=== PATIENT | female | born 1980 | race African-American/Black ===

== ENCOUNTER 2016-07-05 08:48 | Emergency (ER) | payer OTHER ==
[2016-07-05 09:10] VITALS: TEMP 98; BMI 35.4
[2016-07-05] MEDS ORDERED: SODIUM CHLORIDE 1,000 ML IV ONE (09:41)
[2016-07-05] MEDS ORDERED: KETOROLAC TROMETHAMINE 30 MG/1 ML VIAL IVPUSH ONE (09:41)
--- NOTE | 2016-07-05 09:47 | PDOC ---
History of Present Illness - General History Source: Patient Exam Limitations: No Limitations - History of Present Illness Initial Comments: 07/05/16 09:53 The patient is a 35-year-old woman with a significant past medical history of hypertension who presents to the emergency department via walk-in for further evaluation of a headache. No fall/trauma/strenuous activity. She states she was in her usual state of health when she woke up this morning, at approximately 06: 00 AM with palpitations and an associated left temporal headache and neck stiffness that subsided up until ER arrival. She reports experiencing similar symptoms in the past which she attributed to her history of hypertension. She reports compliance with her hypertensive medications last night and this morning. Patient stated that her palpitations and headache have now resolved and only expresses concern for her neck pain/stiffness. Patient states that her neck pain is exacerbated with turning her head, particularly to her left. She also reports mild left ear pain. pt endorses URI symptoms over the past 1-2 weeks which has since resolved. No recent fevers, chills, generalized weakness. No chest pain, lightheadedness, dizziness, visual changes, cough, shortness of breath No abdominal pain, nausea, vomiting, diarrhea. No associated numbness/tingling/weakness in the face, upper or lower extremities Allergies: No Known Drug Allergies Past Surgical History: None reported. Social History: No tobacco, ETOH and recreational drug use. Primary Care Physician: Dr. Harpreet Arroyo / <Mine Moore - Last Filed: 07/05/16 10:26> <Jaguar Garcia - Last Filed: 07/05/16 11:57> - General Chief Complaint: Palpitations Stated Complaint: HEADACHE, PALPITATIONS Time Seen by Provider: 07/05/16 09:20 Past History <Mine Moore - Last Filed: 07/05/16 10:26> - Past Medical History HTN: Yes - Psycho/Social/Smoking Cessation Hx Suicidal Ideation: No Smoking History: Never smoked Hx Alcohol Use: No Drug/Substance Use Hx: No <Jaguar Garcia - Last Filed: 07/05/16 11:57> - Past Medical History Allergies/Adverse Reactions: Allergies Allergy/AdvReac Type Severity Reaction Status Date / Time No Known Allergies Allergy Verified 07/05/16 09:05 Home Medications: Ambulatory Orders NK [No Known Home Medication] 07/05/16 Review of Systems - Review of Systems Able to Perform ROS?: Yes Comments:: 07/05/16 09:53 CONSTITUTIONAL: No reported: Fever, Chills, Diaphoresis, Generalized Weakness, Malaise, Loss of Appetite HEENT: Reported: Left Ear Pain. No reported: Rhinorrhea, Nasal Congestion Throat Pain, Throat Swelling, Difficulty Swallowing, Mouth Swelling, Eye Pain, Visual Changes CARDIOVASCULAR: Reported: Palpitations. (Now Resolved). No reported: Chest Pain, Syncope, Irregular Heart Rate, Lightheadedness, Peripheral Edema RESPIRATORY: No Reported: Cough, Shortness of Breath, SOB with Exertion, Orthopnea, Wheezing , Stridor, Hemoptysis GASTROINTESTINAL: No reported: Abdominal pain, Abdominal Distension, Nausea, Vomiting, Diarrhea, Constipation, Melena, Hematochezia GENITOURINARY: No reported: Dysuria, Frequency, Urgency, Hesitancy, Flank Pain, Genital Pain MUSCULOSKELETAL: Reported: Neck Pain. Neck Stiffness. No reported: Myalgia, Arthralgia, Joint Swelling, Back pain SKIN: No reported: Rash, Itching, Pallor HEMEATOLOGIC/IMMUNOLOGIC: No reported: Easy Bleeding, Easy Bruising, Lymphadenopathy, Frequent infections ENDOCRINE: No reported: Unexplained Weight Gain, Unexplained Weight Loss, Heat Intolerance , Cold Intolerance NEUROLOGIC: Reported: Headache (Now Resolved) No reported: Focal Weakness, Paresthesias, Vertigo, Lightheadedness, Unsteady Gait, Seizure, Mental Status Changes, Incontinence PSYCHIATRIC: No reported: Anxiety, Depression <Mine Moore - Last Filed: 07/05/16 10:26> *Physical Exam - Vital Signs Last Vital Signs Temp Pulse Resp BP Pulse Ox 98.0 F 106 H 20 153/89 100 07/05/16 09:05 07/05/16 09:05 07/05/16 09:05 07/05/16 09:05 07/05/16 09:05 - Physical Exam Comments: 07/05/16 09:53 GENERAL: The patient is awake, alert, and fully oriented, Nontoxic - in no acute distress. HEAD: Normocephalic, atraumatic. EYES: extraocular movements intact, sclera anicteric, conjunctiva clear. ENT: Bilateral TMs are clear without erythema, bulging, light reflexes intact and symmetric bilaterally, No tonsillar exudates or erythema. Normal voice. Moist mucous membranes. NECK: Normal range of motion, supple. Mild tenderness to palpation on the left neck strap muscles. LUNGS: Breath sounds equal, clear to auscultation bilaterally. No wheezes, no rhonchi, no rales. HEART: Regular rate and rhythm, without murmur, rub or gallop. ABDOMEN: Soft, nontender, normoactive bowel sounds. No guarding, no rebound.No CVA tenderness EXTREMITIES: Normal range of motion, no edema. No clubbing or cyanosis. No cords , erythema, or tenderness. NEUROLOGICAL: No facial asymmetry, Normal speech, PSYCH: Normal mood, normal affect. SKIN: Warm, Dry, normal turgor. <Mine Moore - Last Filed: 07/05/16 10:26> - Vital Signs Last Vital Signs Temp Pulse Resp BP Pulse Ox 98.0 F 106 H 20 153/89 100 07/05/16 09:05 07/05/16 09:05 07/05/16 09:05 07/05/16 09:05 07/05/16 09:05 <Jaguar Garcia - Last Filed: 07/05/16 11:57> Heart Score/ECG Review - ECG Impressions Comment:: 07/05/16 11:22 Twelve-lead EKG was performed and reviewed by me. There is normal sinus rhythm with a rate of 107 The axis is normal. The intervals are normal. There is normal R wave progression There are no ST or T wave abnormalities. Impression: Sinus tachycardia <Jaguar Garcia - Last Filed: 07/05/16 11:57> ED Treatment Course - LABORATORY CBC & Chemistry Diagram: 07/05/16 09:53 07/05/16 09:53 <Mine Moore - Last Filed: 07/05/16 10:26> - LABORATORY CBC & Chemistry Diagram: 07/05/16 09:53 07/05/16 09:53 <Jaguar Garcia - Last Filed: 07/05/16 11:57> Medical Decision Making - Medical Decision Making 07/05/16 09:45 35y F hx of htn, presenting with complaing of episode of palpitations, headache , neck pain this morning, with resolution of palpitations and headache but still mild L neck pain - pt with reproducible tendeness in the L neck strap muscles/trapezius - suspect strain. will ck labs to r/o anemia, metabolic dernagement. will give toradol for her discomfort. pt also slightly tachycardic - suspect due to dehdyration as pt has not yet had anything to eat/drink this morning. will ck ekg to screen for arrythmia will r/o A portion of this note was documented by scribe services under my direction. I have reviewed the details of the note, within reason, and agree with the documentation with the following case summary and management plan written by me 07/05/16 11:22 The patient's blood work was reviewed it is unremarkable pt is feeling improved with complete resolution of her pain will d/c the pt homew ith pmd fu return precautions were discussed will recheck her vitals to ensure her tachycardia from arrival had resolved prior to discharge I discussed the physical exam findings, ancillary test results and final diagnoses with the patient. I answered all of the patient's questions. The patient was satisfied with the care received and felt comfortable with the discharge plan and treatment plan. The patient will call their primary care physician within 24 hours to arrange follow-up and will return to the Emergency Department with any new, persistent or worsening symptoms. <Jaguar Garcia - Last Filed: 07/05/16 11:57> *DC/Admit/Observation/Transfer - Attestations Scribe Attestion: 07/05/16 09:53 Documentation prepared by Mine Moore, acting as medical liaison for Jaguar Garcia MD. <Mine Moore - Last Filed: 07/05/16 10:26> - Discharge Dispostion Admit: No <Jaguar Garcia - Last Filed: 07/05/16 11:57> Diagnosis at time of Disposition: Palpitations, Neck pain - Discharge Dispostion Disposition: HOME Condition at time of disposition: Improved - Referrals Referrals: Harpreet Arroyo MD [Primary Care Provider] - - Patient Instructions Printed Discharge Instructions: DI for Neck Pain, DI for Palpitations Additional Instructions: Return to the emergency department immediately with ANY new, persistent or worsening symptoms including any numbness, tingling, vision changes, fevers, chills or other concerns. Take ibuprofen or Tylenol for your neck pain. You MUST call and follow up with your doctor tomorrow for further evaluation of your symptoms. Results were discussed with you. Please make sure your doctor reviews the results of your emergency evaluation. Print Language: DIVEHI - Post Discharge Activity Work/School Note: Back to Work
[2016-07-05] MEDS ORDERED: KETOROLAC TROMETHAMINE 30 MG/1 ML VIAL ONE (09:50)
[2016-07-05 10:00] LABS: BASOPHIL 1.4 % (0-2.0); EOSINOPHIL 1.2 % (0-4.5); MCH 27.5 pg (25.7-33.7); MCHC 32.9 g/dl (32.0-36.0); MEAN CELL VOLUME 83.6 fl (80-96); MEAN PLT VOLUME 7.2 fl (7.5-11.1); NEUTROPHILS 60.3 % (42.8-82.8); PLATELET COUNT 330 K/MM3 (134-434); RDW 13.3 % (11.6-15.6); WHITE BLOOD COUNT 5.2 K/mm3 (4.0-10.0)
[2016-07-05 10:28] LABS: URINE APPEARANCE CLEAR; URINE BILIRUBIN NEGATIVE (NEGATIVE); URINE BLOOD NEGATIVE (NEGATIVE); URINE COLOR COLORLESS; URINE GLUCOSE (UA) NEGATIVE (NEGATIVE); URINE KETONE NEGATIVE (NEGATIVE); URINE LEUK ESTERASE NEGATIVE (NEGATIVE); URINE NITRITE NEGATIVE (NEGATIVE); URINE PROTEIN NEGATIVE (NEGATIVE); URINE UROBILINOGEN NEGATIVE E.U./dl (0.2-1.0)
[2016-07-05 10:32] LABS: ALBUMIN 4.6 g/dl (3.4-5.0); ALK PHOS 136 U/L (45-117); ANION GAP 9 (8-16); BILIRUBIN,TOTAL 0.7 mg/dL (0.2-1.0); CALCIUM 9.2 mg/dL (8.5-10.1); CO2 25 mmol/L (21-32); CREATININE 0.8 mg/dL (0.55-1.02); GLUCOSE,RANDOM 82 mg/dL (74-106); SGOT/AST 16 U/L (15-37); TOT PROT 8.5 g/dl (6.4-8.2)
[2016-07-05 11:02] LABS: SGPT/ALT 32 U/L (12-78)
[2016-07-05 11:51] VITALS: BP 149/95; PULSE 82
--- NOTE | 2016-07-05 16:05 | EKG ---
Test Reason : Blood Pressure : / mmHG Vent. Rate : 107 BPM Atrial Rate : 107 BPM P-R Int : 182 ms QRS Dur : 080 ms QT Int : 348 ms P-R-T Axes : 046 044 046 degrees QTc Int : 464 ms SINUS TACHYCARDIA POSSIBLE LEFT ATRIAL ENLARGEMENT BORDERLINE ECG WHEN COMPARED WITH ECG OF 11-MAY-2005 13:39, NO SIGNIFICANT CHANGE WAS FOUND Confirmed by RICHARD WESTFALL MD ([id number]) on 07/05/2016 4:04:44 PM Referred By: Confirmed By:RICHARD WESTFALL MD
== END 2016-07-05 12:01 | disposition home or self-care (01) ==
LOC: JER 08:48
PROC: 3E0333Z Introduction of Anti-inflammatory into Peripheral Vein, Percutaneous Approach (ICD-10-PCS; principal; 2016-07-05)
DX: R00.2 Palpitations (principal)
CPT/HCPCS: 36415; 80053; 81003; 84703; 85025; 93005; 93010; 99284-25